=== PATIENT | female | born 1950 | race Caucasian/White ===

== ENCOUNTER 2016-04-28 10:07 | Outpatient (CLI) | payer MEDICARE, BC | END 2016-04-28 10:08 | disposition home or self-care (01) | DX: G47.33 Obstructive sleep apnea (adult) (pediatric) (principal) | CPT/HCPCS: 99214; G0463 ==

== ENCOUNTER 2016-06-12 10:24 | Outpatient (CLI) | payer BC, MEDICARE | END 2016-06-12 10:25 | disposition home or self-care (01) | DX: E55.9 Vitamin D deficiency, unspecified (principal); R73.09 Other abnormal glucose; Z79.899 Other long term (current) drug therapy; R53.83 Other fatigue ==

== ENCOUNTER 2016-09-03 07:05 | Day surgery (SDC) | payer MEDICARE, BC ==
[~2016-09-03 07:05] MED LIST: LACTATED RINGERS 1,000 ML IV ONE; LACTATED RINGERS 500 ML IV ONE
[2016-09-03] MEDS ORDERED: TROPICAMIDE 1% OPHTH 2 ML DROPS OPTH ONE (07:40)
[2016-09-03] MEDS ORDERED: KETOROLAC 0.45% OPHTH DROPS OPTH ONE (07:40)
[2016-09-03] MEDS ORDERED: CYCLOPENTOLATE 1% OPHTH DROPS 2 ML OPTH ONE (07:40)
[2016-09-03] MEDS ORDERED: NEOMYCIN/POLYMYX/DEXAMETH OPHTH OINT OPTH ONE ×2 (08:18→08:35)
[2016-09-03] MEDS ORDERED: levoFLOXacin 0.5% OPHTH DROPS 5 ML OPTH ONE (08:18)
[2016-09-03] MEDS ORDERED: EPINEPHrine 1 MG/ML AMP IO ONE ×2 (08:18→08:35)
[2016-09-03] MEDS ORDERED: BRIMONIDINE 0.2% OPHTH DROPS 5 ML OPTH ONE ×2 (08:18→08:35)
[2016-09-03] MEDS ORDERED: PROPARACAINE 0.5% OPHTH DROPS 15 ML OPTH ONE ×2 (08:18→08:35)
[2016-09-03] MEDS ORDERED: BSS/LIDOCAINE/EPINEPHRINE 1 ML SYRINGE IO ONE ×3 (08:19→08:35)
[2016-09-03] MEDS ORDERED: CHONDR SULF/HYALURONATE SYRINGE IO ONE ×3 (08:19→08:35)
[2016-09-03] MEDS ORDERED: TETRACAINE 0.5% OPHTH DROPS 4 ML LEFTEYE ONE ×2 (08:20→08:35)
[2016-09-03] MEDS ORDERED: levoFLOXacin 0.5% OPHTH DROPS 5 ML LEFTEYE ONE (08:35)
[2016-09-03] MEDS ORDERED: PROPOFOL 200 MG/20 ML VIAL IVP ONE (08:40)
[2016-09-03] MEDS ORDERED: LIDOCAINE-MPF 2% 5 ML VIAL IM ONE (08:40)
[2016-09-03] MEDS ORDERED: MIDAZOLAM 2 MG/2 ML VIAL IVP ONE (08:40)
[2016-09-03 09:15] VITALS: BP 142/68
--- NOTE | 2016-09-03 10:27 | OPERATIVE REPORT ---
DATE OF SURGERY: 09/03/2016 00:00:00 PREOPERATIVE DIAGNOSIS: Visually impairing cataract, left eye. POSTOPERATIVE DIAGNOSIS: Visually impairing cataract, left eye. NAME OF PROCEDURE: Phacoemulsification cataract extraction with intraocular lens implant of the left eye, clear corneal lateral approach. SURGEON: Peter Be MD ANESTHESIA: Topical 0.5% tetracaine with monitored sedation, and intracameral Shugarcaine given at th e beginning of the surgical procedure. COMPLICATIONS: None. DESCRIPTION OF SURGICAL PROCEDURE: The patient was brought to the OR and, after IV and cardiac leads were placed, the patient was then prepped and draped in the usual ophthalmic manner. An adhesive pl astic drape was placed over the eye, a slit was made in the drape, and topical anesthetic was placed on the eye. A lid speculum was used to separate the eyelids and expose the eye. The eye was held se curely with the Colibri forceps. A Micro-Sharp blade was used to make a self-sealing stab wound 2 o' clock hours to the left of the planned clear corneal incision. Viscoelastic was used to fill the an terior chamber, and a crescent blade was used to make the initial vertical component of the self-seal ing clear corneal incision. A 2.75 keratome was used to complete the incision. A circular tear caps ulorrhexis was performed. The nucleus was hydrodissected, and phacoemulsification of the cataract wa s performed without complication. The I/A unit was used to remove the cortical material from the eye . The posterior capsule was polished crystal clear with the [employer] capsule polisher, and again the I/ A unit was used to remove any loose particulate matter after polishing the capsule. Viscoelastic was used to inflate the capsular bag. An AcrySof lens was inserted into the capsular bag with the loops left at about the 3 o'clock and 9 o'clock meridians. The I/A unit was used to remove as much Viscoe lastic from the eye as possible. BSS was used to fill the anterior chamber, with the wound found to be self-sealing and water tight. Several drops of Quixin were placed on the eye. The lid speculum w as removed. A drop of brimonidine was placed on the eye. Maxitrol ointment was placed on the eye. The eye was patched and shielded, and the patient was taken to the recovery room in good condition. JOB #: [id number] EXT JOB #:[id number]
== END 2016-09-03 07:06 | disposition home or self-care (01) ==
LOC: SDS 07:05
PROVIDERS: ATTEND Specialist
PROC: 08RK3JZ Replacement of Left Lens with Synthetic Substitute, Percutaneous Approach (ICD-10-PCS; principal; 2016-09-03 08:15)
DX: H25.12 Age-related nuclear cataract, left eye (principal); I69.354 Hemiplegia and hemiparesis following cerebral infarction affecting left non-dominant side; I48.91 Unspecified atrial fibrillation; E66.9 Obesity, unspecified; G47.30 Sleep apnea, unspecified; Z87.891 Personal history of nicotine dependence; Z68.41 Body mass index [BMI] 40.0-44.9, adult; Z96.649 Presence of unspecified artificial hip joint
CPT/HCPCS: 66984; V2632

== ENCOUNTER 2016-09-10 09:32 | Day surgery (SDC) | payer MEDICARE, BC ==
[2016-09-10] MEDS ORDERED: LACTATED RINGERS 500 ML IV ONE ×2 (09:45→12:06)
[2016-09-10] MEDS ORDERED: CYCLOPENTOLATE 1% OPHTH DROPS 2 ML OPTH ONE (09:50)
[2016-09-10] MEDS ORDERED: KETOROLAC 0.45% OPHTH DROPS OPTH ONE (09:50)
[2016-09-10] MEDS ORDERED: TROPICAMIDE 1% OPHTH 2 ML DROPS OPTH ONE (09:50)
[2016-09-10] MEDS ORDERED: PROPARACAINE 0.5% OPHTH DROPS 15 ML OPTH ONE ×2 (10:28→11:22)
[2016-09-10] MEDS ORDERED: BRIMONIDINE 0.2% OPHTH DROPS 5 ML OPTH ONE ×2 (10:28→11:22)
[2016-09-10] MEDS ORDERED: CHONDR SULF/HYALURONATE SYRINGE IO ONE ×2 (10:29→11:22)
[2016-09-10] MEDS ORDERED: NEOMYCIN/POLYMYX/DEXAMETH OPHTH OINT OPTH ONE ×2 (10:29→11:23)
[2016-09-10] MEDS ORDERED: BSS/LIDOCAINE/EPINEPHRINE 1 ML SYRINGE IO ONE ×2 (10:29→11:22)
[2016-09-10] MEDS ORDERED: EPINEPHrine 1 MG/ML AMP IO ONE ×2 (10:29→11:22)
[2016-09-10] MEDS ORDERED: levoFLOXacin 0.5% OPHTH DROPS 5 ML OPTH ONE ×2 (10:29→11:22)
[2016-09-10] MEDS ORDERED: PROPOFOL 200 MG/20 ML VIAL IVP ONE (11:13)
[2016-09-10] MEDS ORDERED: MIDAZOLAM 2 MG/2 ML VIAL IVP ONE (11:13)
[2016-09-10 12:18] VITALS: BP 136/74
--- NOTE | 2016-09-10 12:20 | OPERATIVE REPORT ---
DATE OF SURGERY: 09/10/2016 00:00:00 PREOPERATIVE DIAGNOSIS: Visually impairing cataract, right eye. POSTOPERATIVE DIAGNOSIS: Visually impairing cataract, right eye. NAME OF PROCEDURE: Phacoemulsification cataract extraction with intraocular lens implant of the righ t eye, clear corneal lateral approach. SURGEON: Peter Be MD ANESTHESIA: Topical 0.5% tetracaine with monitored sedation and intracameral Shugarcaine given at th e beginning of the surgical procedure. COMPLICATIONS: None. DESCRIPTION OF SURGICAL PROCEDURE: The patient was brought to the OR and, after IV and cardiac leads were placed, the patient was then prepped and draped in the usual ophthalmic manner. An adhesive pl astic drape was placed over the eye, a slit was made in the drape, and topical anesthetic was placed on the eye. A lid speculum was used to separate the eyelids and expose the eye. The eye was held se curely with the Colibri forceps. A Micro-Sharp blade was used to make a self-sealing stab wound 2 o' clock hours to the left of the planned clear corneal incision. Viscoelastic was used to fill the an terior chamber, and a crescent blade was used to make the initial vertical component of the self-seal ing clear corneal incision. A 2.75 keratome was used to complete the incision. A circular tear caps ulorrhexis was performed. The nucleus was hydrodissected, and phacoemulsification of the cataract wa s performed without complication. The I/A unit was used to remove the cortical material from the eye . The posterior capsule was polished crystal clear with the [employer] capsule polisher, and again the I/ A unit was used to remove any loose particulate matter after polishing the capsule. Viscoelastic was used to inflate the capsular bag. An AcrySof lens was inserted into the capsular bag with the loops left at about the 3 o'clock and 9 o'clock meridians. The I/A unit was used to remove as much Viscoe lastic from the eye as possible. BSS was used to fill the anterior chamber, with the wound found to be self-sealing and water tight. Several drops of Quixin were placed on the eye. The lid speculum w as removed. A drop of brimonidine was placed on the eye. Maxitrol ointment was placed on the eye. The eye was patched and shielded, and the patient was taken to the recovery room in good condition. JOB #: [id number] EXT JOB #:[id number]
== END 2016-09-10 09:33 | disposition home or self-care (01) ==
LOC: SDS 09:32
PROVIDERS: ATTEND Specialist
PROC: 08RJ3JZ Replacement of Right Lens with Synthetic Substitute, Percutaneous Approach (ICD-10-PCS; principal; 2016-09-10 10:30)
DX: H25.11 Age-related nuclear cataract, right eye (principal); G47.33 Obstructive sleep apnea (adult) (pediatric); I48.91 Unspecified atrial fibrillation; Z87.891 Personal history of nicotine dependence
CPT/HCPCS: 66984; V2632

== ENCOUNTER 2016-09-15 12:14 | Outpatient (CLI) | payer MEDICARE, BC ==
--- NOTE | 2016-09-16 16:36 | Mammography Report ---
DIGITAL SCREENING MAMMOGRAM: 09/15/2016 CLINICAL INDICATION: A 66-year-old with history of late childbearing for screening. COMPARISON: 09/2015, 07/2013, 10/2009, 08/2008, 08/2006. TECHNIQUE: Routine CC and MLO projections were obtained of the breasts. FINDINGS: Parenchymal tissue within the breasts is predominantly fatty replaced. There are no domina nt masses, suspicious microcalcifications, or secondary signs of malignancy. In comparison to the pre vious studies, there are no significant changes. IMPRESSION: NO MAMMOGRAPHIC EVIDENCE OF MALIGNANCY. NO SIGNIFICANT INTERVAL CHANGES. RECOMMENDATION: Screening mammography is recommended annually. BI-RADS category 1 - negative. STANDARD QUALIFYING STATEMENTS 1. This examination was reviewed with the aid of Computed-Aided Detection (CAD). 2. A negative or benign imaging report should not delay biopsy if clinically suspicious findings are present. Consider surgical consultation if warranted. More than 5% of cancers are not identified by i maging. 3. Dense breasts may obscure an underlying neoplasm. JOB #: [id number] EXT JOB #:[id number]
== END 2016-09-15 12:15 | disposition home or self-care (01) ==
LOC: DI 12:14
PROVIDERS: ATTEND Internal Medicine
DX: Z12.31 Encounter for screening mammogram for malignant neoplasm of breast (principal)
CPT/HCPCS: 77067

== ENCOUNTER 2016-09-22 08:21 | Outpatient (CLI) | payer MEDICARE, BC ==
--- NOTE | 2016-09-22 15:57 | DEXA Report ---
DEXA SCAN: 09/22/2016 CLINICAL INDICATION: Postmenopausal. TECHNIQUE: Dual energy x-ray absorptiometry (DXA) was performed on a smsPREP system. Regions measured are the lumbar spine and left forearm. COMPARISON: None. In accordance with the International Society for Clinical Densitometry (ISCD) guidelines, data from previous exams may be reanalyzed using current recommendations and techniques. This is done to allow a more accurate basis for comparison with the current study. FINDINGS: The data for the lumbar spine is as follows: REGION BMD (g/cm/cm) T-SCORE Z-SCORE L1 0.929 -1.7 -1.2 L2 0.998 -1.7 -1.2 L3 1.130 -0.6 -0.1 L4 1.004 -1.6 -1.2 TOTAL 1.019 -1.3 -0.9 NOTE: All evaluable vertebrae are used for classification. The data for the forearm is as follows: REGION BMD (g/cm/cm) T-SCORE Z-SCORE 1/3 0.790 -1.0 0.5 NOTE: The 33% radius of the nondominant forearm is used for classification. IMPRESSION: 1. THE WHO CLASSIFICATION BASED ON THE INTERNATIONAL REFERENCE STANDARD IS OSTEOPENIA. THE FRACTURE RISK IS INCREASED. 2. LEFT FOREARM EVALUATION PERFORMED DUE TO BILATERAL HIP REPLACEMENTS. RECOMMENDATION: Patients with diagnosis of osteoporosis or osteopenia should have regular bone mineral density assessment. For those eligible for Medicare, routine testing is allowed once every 2 years. Testing frequency can be increased for patients who have rapidly progressing disease or for those who are receiving medical therapy to restore bone mass. COMMENT: World Health Organization (WHO) definitions for osteoporosis and osteopenia: NORMAL BMD: T-score at -1.0 or higher, fracture risk is low. OSTEOPENIA BMD: T-score between -1.0 and -2.5, fracture risk is increased. OSTEOPOROSIS BMD: T-score at -2.5 or lower, fracture risk high. National Osteoporosis Foundation recommends: 1. Obtain adequate dietary calcium (at least 1200 mg per day) and vitamin D (400 -800 international units per day). 2. Participate, as appropriate, in regular weightbearing and muscle- strengthening exercise. 3. Avoid tobacco use and reduce alcohol and caffeine intake. 4. For more detailed information see the website at www.NOF.org. MTDD
== END 2016-09-22 08:22 | disposition home or self-care (01) ==
LOC: DI 08:21
PROVIDERS: ATTEND Internal Medicine
DX: Z13.820 Encounter for screening for osteoporosis (principal); M85.89 Other specified disorders of bone density and structure, multiple sites; Z78.0 Asymptomatic menopausal state; Z96.643 Presence of artificial hip joint, bilateral
CPT/HCPCS: 77080; 77081

== ENCOUNTER 2017-08-19 08:00 | Outpatient (CLI) | payer MEDICARE, BC ==
[2017-08-19 13:44] LABS: EOSINOPHILS # (AUTO) 0.1 10^3/uL (0.0-0.7); EOSINOPHILS % (AUTO) 1.6 %; HGB - HEMOGLOBIN 12.1 g/dL (12.0-16.0); LYMPHOCYTES # (AUTO) 1.1 10^3/uL (1.5-3.5); MEAN CORPUSCULAR HGB CONC 33.8 g/dL (32.0-36.0); MEAN PLATELET VOLUME 8.4 fL (7.9-10.8); MONOCYTES # (AUTO) 0.3 10^3/uL (0.0-1.0); MONOCYTES % (AUTO) 8.1 %; NEUTROPHILS % (AUTO) 57.3 %; PLT - PLATELET COUNT 138 10^3/uL (130-450); RED BLOOD COUNT 4.02 10^6/uL (4.20-5.40); RED CELL DISTRIBUTION WIDTH 14.2 % (12.0-15.0); WHITE BLOOD COUNT 3.5 x10^3/uL (4.8-10.8)
[2017-08-19 13:59] LABS: ALBUMIN 4.1 g/dL (3.2-5.5); ALBUMIN/GLOBULIN RATIO 1.5 (1.0-2.2); ALKALINE PHOSPHATASE 46 IU/L (42-121); ALT ALANINE AMINOTRANSFERASE 13 IU/L (10-60); AST ASPARTATE AMINOTRANSFERASE 15 IU/L (10-42); BILIRUBIN,TOTAL 0.6 mg/dL (0.2-1.0); BUN - BLOOD UREA NITROGEN 14 mg/dL (6-20); CALCIUM 9.3 mg/dL (8.5-10.3); CARBON DIOXIDE - CO2 29 mmol/L (21-32); CHLORIDE 100 mmol/L (101-111); CHOL/HDL RATIO 2.5 (<4.4); CHOLESTEROL 202 mg/dL; CREATININE 0.8 mg/dL (0.4-1.0); GFR - MDRD 72 (>89); GLUCOSE 105 mg/dL (70-100); HDL CHOLESTEROL 81 mg/dL; LDL CHOLESTEROL,CALCULATED 99 mg/dL; LDL/HDL RATIO 1.2 (<4.4); SODIUM 136 mmol/L (135-145); TOTAL PROTEIN 6.9 g/dL (6.7-8.2); VLDL CHOLESTEROL 22 mg/dL
[2017-08-20 11:16] LABS: HEPATITIS C ANTIBODY NON-REACTIVE (NON-REACTIVE)
== END 2017-08-19 08:01 | disposition home or self-care (01) ==
LOC: LAB.R 08:00
PROVIDERS: ATTEND Internal Medicine
DX: E66.9 Obesity, unspecified (principal); E78.5 Hyperlipidemia, unspecified; I10 Essential (primary) hypertension; M19.90 Unspecified osteoarthritis, unspecified site; I48.91 Unspecified atrial fibrillation; Z79.899 Other long term (current) drug therapy; Z72.89 Other problems related to lifestyle
CPT/HCPCS: 80053; 80061; 83721; 84443; 85025; 86803

== ENCOUNTER 2017-08-26 07:45 | Outpatient (CLI) | payer MEDICARE, BC ==
--- NOTE | 2017-08-26 13:47 | CT Report ---
CT CHEST WITHOUT CONTRAST FOR LUNG CANCER SCREENIN08/26/2017 CLINICAL INDICATION: A 67-year-old asymptomatic patient with a [id number] history of smoking, quit within the last 15 years, for screening. COMPARISON: 04/18/2016 from [place], [place]. TECHNIQUE: Axial CT images of the chest were obtained without intravenous contrast, using low dose screening technique. FINDINGS: The heart and great vessels demonstrate atherosclerotic calcifications, mild. Calcified mediastinal lymph nodes are present, stable from previous. No adenopathy is seen. No noncalcified pulmonary nodule or mass lesion is appreciated. No effusion or pneumothorax is present. Osseous structures demonstrate degenerative changes. Limited evaluation of upper abdominal structures demonstrates normal adrenal glands. IMPRESSION: NEGATIVE EXAMINATION. RECOMMENDATION: Continue low dose screening with CT in 12 months. LUNG-RADS CATEGORY 1 - NEGATIVE. CT DOSE REDUCTION STATEMENT In accordance with CT protocol optimization, one or more of the following dose reduction techniques were utilized for this exam: automated exposure control, adjustment of mA and/or KV based on patient size, or use of iterative reconstructive technique. TD: 08/26/2017 13:33
== END 2017-08-26 07:46 | disposition home or self-care (01) ==
LOC: DI 07:45
PROVIDERS: ATTEND Internal Medicine
DX: Z00.8 Encounter for other general examination (principal); Z87.891 Personal history of nicotine dependence

== ENCOUNTER 2017-10-08 11:57 | Day surgery (SDC) | payer MEDICARE, BC ==
[~2017-10-08 11:57] MED LIST changes: -LACTATED RINGERS 500 ML IV ONE
[2017-10-08] MEDS ORDERED: LACTATED RINGERS 1,000 ML IV ONE (12:03)
[2017-10-08] MEDS ORDERED: LIDOCAINE-MPF 2% 5 ML VIAL IM ONE (13:45)
[2017-10-08] MEDS ORDERED: MIDAZOLAM 2 MG/2 ML VIAL IVP ONE (13:45)
[2017-10-08] MEDS ORDERED: PROPOFOL 200 MG/20 ML VIAL IVP ONE (13:45)
[2017-10-08] MEDS ORDERED: fentaNYL 100 MCG/2 ML VIAL IVP ONE (13:45)
[2017-10-08 14:31] VITALS: BP 166/92
== END 2017-10-08 11:58 | disposition home or self-care (01) ==
LOC: SDS 11:57
PROVIDERS: ATTEND Internal Medicine Gastroenterology
PROC: 0DJD8ZZ Inspection of Lower Intestinal Tract, Via Natural or Artificial Opening Endoscopic (ICD-10-PCS; principal; 2017-10-08 12:15)
DX: Z12.11 Encounter for screening for malignant neoplasm of colon (principal); K57.30 Diverticulosis of large intestine without perforation or abscess without bleeding; E78.5 Hyperlipidemia, unspecified; I10 Essential (primary) hypertension; I48.91 Unspecified atrial fibrillation; G47.33 Obstructive sleep apnea (adult) (pediatric); Z79.01 Long term (current) use of anticoagulants; Z87.891 Personal history of nicotine dependence
CPT/HCPCS: G0121; J7120

== ENCOUNTER 2020-02-09 06:22 | Outpatient (CLI) | payer MEDICARE, BC | END 2020-02-09 06:23 | disposition EMS.NT | LOC: EMS 06:22 | PROVIDERS: ATTEND Surgery | DX: Z03.89 Encounter for observation for other suspected diseases and conditions ruled out (principal) ==

== ENCOUNTER 2020-08-28 08:00 | Outpatient (CLI) | payer MEDICARE, BC ==
[2020-08-28 11:55] LABS: BASOPHILS % (AUTO) 0.6 %; EOSINOPHILS # (AUTO) 0.1 10^3/uL (0.0-0.7); EOSINOPHILS % (AUTO) 1.3 %; HCT - HEMATOCRIT 41.7 % (37.0-47.0); HGB - HEMOGLOBIN 12.8 g/dL (12.0-16.0); LYMPHOCYTES # (AUTO) 1.4 10^3/uL (1.5-3.5); LYMPHOCYTES % (AUTO) 26.8 %; MEAN CORPUSCULAR HEMOGLOBIN 28.4 pg (27.0-31.0); MEAN CORPUSCULAR HGB CONC 30.7 g/dL (32.0-36.0); MEAN CORPUSCULAR VOLUME 92.5 fL (81.0-99.0); MEAN PLATELET VOLUME 10.9 fL (7.9-10.8); MONOCYTES # (AUTO) 0.4 10^3/uL (0.0-1.0); MONOCYTES % (AUTO) 7.3 %; NEUTROPHILS # (AUTO) 3.4 10^3/uL (1.5-6.6); NEUTROPHILS % (AUTO) 63.8 %; PLT - PLATELET COUNT 195 10^3/uL (130-450); RED BLOOD COUNT 4.51 10^6/uL (4.20-5.40); WHITE BLOOD COUNT 5.3 x10^3/uL (4.8-10.8)
[2020-08-28 12:44] LABS: THYROID STIMULATING HORMONE 2.54 uIU/mL (0.34-5.60)
[2020-08-28 13:15] LABS: ALBUMIN 4.4 g/dL (3.2-5.5); ALBUMIN/GLOBULIN RATIO 1.4 (1.0-2.2); ALKALINE PHOSPHATASE 68 IU/L (42-121); ALT ALANINE AMINOTRANSFERASE 18 IU/L (10-60); AST ASPARTATE AMINOTRANSFERASE 21 IU/L (10-42); BILIRUBIN,TOTAL 0.9 mg/dL (0.2-1.0); BUN - BLOOD UREA NITROGEN 13 mg/dL (6-20); CALCIUM 9.9 mg/dL (8.5-10.3); CARBON DIOXIDE - CO2 26 mmol/L (21-32); CHLORIDE 99 mmol/L (101-111); CHOL/HDL RATIO 2.4 (<4.4); CHOLESTEROL 186 mg/dL; CREATININE 0.8 mg/dL (0.4-1.0); GFR - MDRD 71 (>89); GLUCOSE 109 mg/dL (70-100); HDL CHOLESTEROL 79 mg/dL; LDL CHOLESTEROL,CALCULATED 80 mg/dL; POTASSIUM 4.7 mmol/L (3.5-5.0); SODIUM 138 mmol/L (135-145); TOTAL PROTEIN 7.6 g/dL (6.7-8.2); TRIGLYCERIDES 137 mg/dL; VLDL CHOLESTEROL 27 mg/dL
== END 2020-08-28 23:59 | disposition home or self-care (01) ==
LOC: LAB.WCP 08:00
PROVIDERS: ATTEND Family Medicine
DX: G47.33 Obstructive sleep apnea (adult) (pediatric) (principal); Z79.01 Long term (current) use of anticoagulants; I10 Essential (primary) hypertension; E78.5 Hyperlipidemia, unspecified; I48.91 Unspecified atrial fibrillation; I63.9 Cerebral infarction, unspecified
CPT/HCPCS: 36415; 80053; 80061; 83721; 84443; 85025

== ENCOUNTER 2020-11-07 08:52 | Outpatient (CLI) | payer MEDICARE, BC ==
--- NOTE | 2020-11-22 15:50 | Mammography Report ---
BILATERAL DIGITAL SCREENING MAMMOGRAM: 11/07/2020 CLINICAL: Routine screening. Comparison is made to exams dated: 09/15/2016 mammogram and 09/18/2015 mammogram - [facility]. The tissue of both breasts is predominantly fatty. No significant masses, calcifications, or other findings are seen in either breast. There has been no significant interval change. IMPRESSION: NEGATIVE There is no mammographic evidence of malignancy. A 1 year screening mammogram is recommended. This exam was interpreted at Station ID: [id number]. NOTE: For mammograms, a report in lay terms will be sent to the patient. Approximately 15% of breast malignancies will not be visualized mammographically. In the management of a palpable breast mass, a negative mammogram must not discourage biopsy of a clinically suspicious lesion. Electronically Signed By: Rashel sarmiento/manuel:11/21/2020 11:00:45 ACR BI-RADS Category 1: Negative 3341F PARENCHYMAL PATTERN: (F) - The breast(s) demonstrate(s) diffuse fatty replacement. BI-RADS CATEGORY: (1) - 1 RECOMMENDATION: (ANNUAL) - Recommend routine annual screening mammography. [id number] 1 year screening LATERALITY: (B)
== END 2020-11-07 08:53 | disposition home or self-care (01) ==
LOC: DI 08:52
PROVIDERS: ATTEND Family Medicine
DX: Z12.31 Encounter for screening mammogram for malignant neoplasm of breast (principal)

== ENCOUNTER 2020-11-07 08:57 | Outpatient (CLI) | payer MEDICARE, BC ==
--- NOTE | 2020-11-12 14:36 | DEXA Report ---
PROCEDURE: Dexa Spine and/or Hip INDICATIONS: POST MENOPAUSAL TECHNIQUE: Dual energy x-ray absorptiometry (DXA) was performed on a ICEdot System. Regions measur ed are the AP Spine, and left forearm due to prior bilateral hip arthroplasty. COMPARISON: 09/22/2016. FINDINGS: Lumbar Spine: Bone Mineral Density 1.000 g/cm/cm,T score -1.5. There is interval 1.9% decrease in total lumbar b one mineral density since 2017 study. Left forearm: Bone Mineral Density 0.581 g/cm/cm, T score -3.4. There is interval 26.5% decrease in forearm bone mi neral density since 2017 study. (T score greater or equal to -1.0: NORMAL) (T score from -1.1 to -2.4: OSTEOPENIA) (T score less than or equal to -2.5 to: OSTEOPOROSIS) Impression: Osteoporosis. Patients with diagnosis of osteoporosis or osteopenia should have regular bone mineral density assess ment. For those eligible for Medicare, routine testing is allowed once every 2 years. Testing frequ ency can be increased for patients who have rapidly progressing disease or for those who are receivin g medical therapy to restore bone mass. Reviewed by: Rohan Bran MD on 11/07/2020 11:17 AM PDT Approved by: Rohan Bran MD on 11/07/2020 11:17 AM PDT Station ID: [id number]
== END 2020-11-07 08:58 | disposition home or self-care (01) ==
LOC: DI 08:57
PROVIDERS: ATTEND Family Medicine
DX: Z13.820 Encounter for screening for osteoporosis (principal); Z78.0 Asymptomatic menopausal state; M81.0 Age-related osteoporosis without current pathological fracture

== ENCOUNTER 2021-03-04 08:00 | Outpatient (CLI) | payer MEDICARE, BC ==
[2021-03-04 13:06] LABS: ESTIMATED AVERAGE GLUCOSE 103 mg/dL (70-100); HEMOGLOBIN A1c% 5.2 % (4.27-6.07)
[2021-03-04 13:28] LABS: CALCIUM 10.1 mg/dL (8.5-10.3); CREATININE 0.9 mg/dL (0.4-1.0); POTASSIUM 4.5 mmol/L (3.5-5.0)
[2021-03-04 13:37] LABS: THYROID STIMULATING HORMONE 1.67 uIU/mL (0.34-5.60)
[2021-03-04 13:38] LABS: FREE T3 3.63 pg/mL (2.5-3.9)
[2021-03-04 13:39] LABS: FREE T4 (FREE THYROXINE) 0.98 ng/dL (0.58-1.64)
== END 2021-03-04 23:59 ==
LOC: LAB.WCP 08:00
PROVIDERS: ATTEND Family Medicine
DX: E66.01 Morbid (severe) obesity due to excess calories (principal); R73.9 Hyperglycemia, unspecified; G47.33 Obstructive sleep apnea (adult) (pediatric); I10 Essential (primary) hypertension; I48.91 Unspecified atrial fibrillation; I63.9 Cerebral infarction, unspecified
CPT/HCPCS: 36415; 80048; 83036; 84439; 84443; 84481

== ENCOUNTER 2022-06-24 10:20 | Outpatient (CLI) | payer MEDICARE, BC ==
--- NOTE | 2022-06-25 09:00 | Mammography Report ---
BILATERAL DIGITAL SCREENING MAMMOGRAM 3D/2D: 06/24/2022 CLINICAL: Routine screening. Comparison is made to exams dated: 11/07/2020 mammogram, 09/15/2016 mammogram, 09/18/2015 mammogram, and 07/13/2013 mammogram - [facility]. Both breasts are almost entirely fatty (category a/<25% glandular tissue). No significant masses, calcifications, or other findings are seen in either breast. There has been no significant interval change. IMPRESSION: NEGATIVE There is no mammographic evidence of malignancy. A 1 year screening mammogram is recommended. Based on the Tyrer Cuzick model (a risk assessment model) the patients lifetime risk is 3.1% and her 10 year risk is 2.3%. According to the ACR, ACS, and NCCN guidelines, an annual breast MRI exam félix g with mammogram is recommended if the patients lifetime risk is 20% or greater. This exam was interpreted at Station ID: [id number]. NOTE: For mammograms, a report in lay terms will be sent to the patient. Approximately 15% of breast malignancies will not be visualized mammographically. In the management of a palpable breast mass, a negative mammogram must not discourage biopsy of a clinically suspicious lesion. Electronically Signed By: Esthela wilde/manuel:06/24/2022 17:00:39 letter sent: No_Letter ACR BI-RADS Category 1: Negative 3341F PARENCHYMAL PATTERN: (F) - The breast(s) demonstrate(s) diffuse fatty replacement. BI-RADS CATEGORY: (1) - 1 Mammogram [id number] 1 year screening LATERALITY: (B)
== END 2022-06-24 10:21 | disposition home or self-care (01) ==
LOC: DI 10:20
DX: Z12.31 Encounter for screening mammogram for malignant neoplasm of breast (principal)

== ENCOUNTER 2023-05-11 17:10 | Observation (INO) | payer MEDICARE, BC ==
--- NOTE | 2023-05-11 17:29 | ED Physician Documentation ---
History of Present Illness - Stated complaint Stated Complaint: SOA - Chief complaint Chief Complaint: Resp - History obtained from History obtained from: Patient, Family - History of Present Illness Timing: How many weeks ago (several weeks) Pain level max: 0 Pain level now: 0 - Additonal information Additional information: Patient is a 72-year-old female who has had difficulty breathing for the past several weeks. She went to the walk-in clinic today and was found to be hypoxic, approximately 80% on room air. Has a history of obstructive sleep apnea. Uses CPAP/BiPAP. She has a remote smoking history, does not smoke currently. Does not believe that she has any COPD, emphysema or asthma. Denies any cardiac history. No coronary artery disease that is known. No stents, bypasses etc. No fevers. No chills. No cough. No congestion. Worse with walking, better with rest. Does not use oxygen at home. Review of Systems Constitutional: denies: Fever, Chills Nose: denies: Rhinorrhea / runny nose, Congestion GI: denies: Vomiting, Diarrhea : denies: Dysuria Skin: denies: Lesions Musculoskeletal: denies: Neck pain, Back pain Neurologic: denies: Headache PD PAST MEDICAL HISTORY - Past Medical History Past Medical History: Yes Cardiovascular: Atrial fibrillation, Hypertension Respiratory: CPAP use, Sleep apnea Endocrine/Autoimmune: None GI: Chronic constipation : None HEENT: None Psych: None Musculoskeletal: Osteoarthritis Derm: None - Past Surgical History Past Surgical History: Yes Ortho: Hip replacement HEENT: Cataracts - Present Medications Home Medications: Ambulatory Orders Medication Instructions Recorded Confirmed Atorvastatin Calcium 20 mg PO DAILY 08/28/16 10/07/17 Cholecalciferol [Vitamin D3] 5,000 unit PO DAILY 08/28/16 10/07/17 Dabigatran Etexilate Mesylate 150 mg PO BID 08/28/16 10/07/17 [Pradaxa] Metoprolol Succinate [Toprol Xl] 25 mg PO BID 08/28/16 10/07/17 polyethylene glycoL 3350 [Miralax] 17 gm PO DAILY 08/28/16 10/07/17 - Allergies Allergies/Adverse Reactions: Allergies Allergy/AdvReac Type Severity Reaction Status Date / Time No Known Drug Allergies Allergy Verified 05/11/23 17:18 - Social History Does the pt smoke?: Yes Smoking Status: Current every day smoker Does the pt drink ETOH?: Yes Does the pt have substance abuse?: No - Immunizations Immunizations are current?: Yes PD ED PE NORMAL - Vitals Vital signs reviewed: Yes - General General: Alert and oriented X 3, No acute distress - HEENT HEENT: PERRL - Neck Neck: Supple, no meningeal sign - Cardiac Cardiac: Other (Irregularly irregular) - Respiratory Respiratory: Other (Crackles bilaterally, diminished breath sounds bilaterally, Tachypneic) - Abdomen Abdomen: Soft, Non tender, Non distended - Back Back: No spinal TTP - Derm Derm: Warm and dry - Extremities Extremities: Other (2+ bilateral lower extremity pitting edema) - Neuro Neuro: Alert and oriented X 3 - Psych Psych: Normal mood, Normal affect Results - Vitals Vitals: Vital Signs - 24 hr 05/11/23 05/11/23 05/11/23 17:13 17:48 18:00 Temperature 36.0 C L Heart Rate 92 85 84 Respiratory 20 26 H 24 Rate Blood Pressure 232/131 H 211/149 H O2 Saturation 98 99 If not protocol 4 : Oxygen Flow, liters/minute 05/11/23 05/11/23 05/11/23 18:18 18:30 19:00 Temperature Heart Rate 93 84 83 Respiratory 26 H 25 H 24 Rate Blood Pressure 191/150 H 202/116 H 191/165 H O2 Saturation 100 93 91 L If not protocol 4 : Oxygen Flow, liters/minute 05/11/23 05/11/23 05/11/23 19:30 20:00 20:30 Temperature Heart Rate 83 83 85 Respiratory 22 24 26 H Rate Blood Pressure 186/113 H 193/163 H 184/137 H O2 Saturation 91 L 100 98 If not protocol 4 : Oxygen Flow, liters/minute Oxygen O2 Source Nasal cannula Oxygen Flow Rate 4 - EKG (time done) 1820 EKG releavant findings:: EKG personally interpreted by author of this note. Relevant findings are: Rate: Rate (enter#) (77) Rhythm: Atrial fibrillation QRS: Normal Ischemia: Non specific changes - Labs Labs: Laboratory Tests 05/11/23 05/11/23 05/11/23 17:21 17:21 17:21 WBC 7.1 RBC 4.67 Hgb 13.3 Hct 43.6 MCV 93.4 MCH 28.5 MCHC 30.5 L RDW 14.6 Plt Count 188 MPV 10.4 Neut # (Auto) 5.0 Lymph # (Auto) 1.4 L Spink # (Auto) 0.6 Eos # (Auto) 0.1 Baso # (Auto) 0.1 Absolute Nucleated RBC 0.00 Nucleated RBC % 0.0 Sodium 139 Potassium 4.1 Chloride 100 L Carbon Dioxide 33 H Anion Gap 6.0 BUN 15 Creatinine 0.7 Estimated GFR (MDRD) 82 L Glucose 121 H Calcium 10.3 Total Bilirubin 1.0 AST 16 ALT 12 Alkaline Phosphatase 80 Troponin I High Sens B-Natriuretic Peptide 328 H Total Protein 7.4 Albumin 4.4 Globulin 3.0 Albumin/Globulin Ratio 1.5 05/11/23 17:21 WBC RBC Hgb Hct MCV MCH MCHC RDW Plt Count MPV Neut # (Auto) Lymph # (Auto) Spink # (Auto) Eos # (Auto) Baso # (Auto) Absolute Nucleated RBC Nucleated RBC % Sodium Potassium Chloride Carbon Dioxide Anion Gap BUN Creatinine Estimated GFR (MDRD) Glucose Calcium Total Bilirubin AST ALT Alkaline Phosphatase Troponin I High Sens 9.8 B-Natriuretic Peptide Total Protein Albumin Globulin Albumin/Globulin Ratio - Rads (name of study) cxr Relevant Findings:: Final report received, See rad report PD Medical Decision Making - ED course Complexity details: reviewed results, re-evaluated patient, considered differential, d/w patient, d/w family ED course: 72-year-old female with what appears to be new onset CHF. History of sleep apnea and A-fib. Rate controlled. Given Lasix and nitroglycerin. Blood pressure decreased, breathing improved, patient diuresing well. Has pulmonary edema on chest x-ray. She was able to be weaned down to 2 L on nasal cannula. Will need an echocardiogram in the morning and continue diuresis. I spoke with the nighttime hospitalist who accepts. This document was made in part using voice recognition software. While efforts are made to proofread this document, sound alike and grammatical errors may occur. Departure - Departure Disposition: 66 [facility] DC/Xfer Clinical Impression: Hypoxia Pulmonary edema Qualifiers: Chronicity: acute Qualified Code(s): J81.0 - Acute pulmonary edema Congestive heart failure (CHF) Qualifiers: Heart failure type: unspecified Heart failure chronicity: unspecified Qualified Code(s): I50.9 - Heart failure, unspecified Condition: Stable Forms: PCP List
[2023-05-11 17:37] LABS: BASOPHILS # (AUTO) 0.1 10^3/uL (0.0-0.1); BASOPHILS % (AUTO) 0.8 %; EOSINOPHILS # (AUTO) 0.1 10^3/uL (0.0-0.7); EOSINOPHILS % (AUTO) 1.3 %; HCT - HEMATOCRIT 43.6 % (37.0-47.0); HGB - HEMOGLOBIN 13.3 g/dL (12.0-16.0); LYMPHOCYTES # (AUTO) 1.4 10^3/uL (1.5-3.5); LYMPHOCYTES % (AUTO) 19.9 %; MEAN CORPUSCULAR HEMOGLOBIN 28.5 pg (27.0-31.0); MEAN CORPUSCULAR HGB CONC 30.5 g/dL (32.0-36.0); MEAN CORPUSCULAR VOLUME 93.4 fL (81.0-99.0); MEAN PLATELET VOLUME 10.4 fL (7.9-10.8); MONOCYTES # (AUTO) 0.6 10^3/uL (0.0-1.0); MONOCYTES % (AUTO) 7.9 %; NEUTROPHILS % (AUTO) 69.8 %; PLT - PLATELET COUNT 188 10^3/uL (130-450); RED BLOOD COUNT 4.67 10^6/uL (4.20-5.40); RED CELL DISTRIBUTION WIDTH 14.6 % (12.0-15.0); WHITE BLOOD COUNT 7.1 x10^3/uL (4.8-10.8)
[2023-05-11] MEDS: IPRATROPIUM/ALBUTEROL 3 ML NEB INH STA (17:40)
[2023-05-11 17:42] LABS: ALBUMIN 4.4 g/dL (3.2-5.5); ALBUMIN/GLOBULIN RATIO 1.5 (1.0-2.2); CALCIUM 10.3 mg/dL (8.5-10.3); CREATININE 0.7 mg/dL (0.6-1.3); POTASSIUM 4.1 mmol/L (3.5-4.5); TOTAL PROTEIN 7.4 g/dL (6.4-8.9)
--- NOTE | 2023-05-11 18:01 | XRAY Report ---
PROCEDURE: Chest 1V INDICATIONS: dyspnea TECHNIQUE: One view of the chest was acquired. COMPARISON: None FINDINGS: Surgical changes and devices: None. Lungs and pleura: Heart size enlarged. Moderate vascular congestion noted to. Blunting of both costo phrenic angles. Mediastinum: Mediastinal contours appear normal. Bones and chest wall: No suspicious bony lesions. Overlying soft tissues appear unremarkable. IMPRESSION: Cardiomegaly, moderate vascular congestion and bibasilar pleural effusions Reviewed by: Neo Lou MD on 05/11/2023 5:00 PM [facility] Approved by: Neo Lou MD on 05/11/2023 5:00 PM [facility] Station ID: [id number]
[2023-05-11] MEDS: FUROSEMIDE 40 MG/4 ML VIAL IVP STA (19:27)
[2023-05-11] MEDS: NITROGLYCERIN SL 0.4 MG TABLET SL STA (19:27)
[2023-05-11] MEDS ORDERED: DABIGATRAN ETEXILATE MESYLATE 150 MG PO SCH (23:00)
[2023-05-11] MEDS: ACETAMINOPHEN 325 MG TABLET PO STA (23:09)
[2023-05-11] MEDS ORDERED: ONDANSETRON 4 MG/2 ML VIAL IVP PRN (23:48)
[2023-05-12] MEDS: METOPROLOL SUCCINATE 25 MG TABLET PO SCH (00:27)
[2023-05-12 01:01] LABS: B. PARAPERTUSSIS- RESP PCR PAN NOT DETECTED; B. PERTUSSIS- RESP PCR PANEL NOT DETECTED; C. PNEUMONIAE- RESP PCR PANEL NOT DETECTED; CORONAVIRUS 229E-RESP PCR NOT DETECTED; CORONAVIRUS HKU1-RESP PCR NOT DETECTED; CORONAVIRUS NL63-RESP PCR NOT DETECTED; CORONAVIRUS OC43-RESP PCR NOT DETECTED; HUMAN METAPNEUMOVIRUS NOT DETECTED; INFLUENZA A- RESP PCR PANEL NOT DETECTED; INFLUENZA B - RESP PCR PANEL NOT DETECTED; M. PNEUMONIAE- RESP PCR PANEL NOT DETECTED; PARAINFLUENZA VIRUS 1 NOT DETECTED; PARAINFLUENZA VIRUS 2 NOT DETECTED; PARAINFLUENZA VIRUS 3 NOT DETECTED; PARAINFLUENZA VIRUS 4 NOT DETECTED; RHINOVIRUS/ENTEROVIRUS NOT DETECTED; RSV- RESP PCR PANEL NOT DETECTED; SARS-CoV-2 -RESP PCR PANEL NOT DETECTED
[2023-05-12] MEDS: SODIUM CHLORIDE FLUSH 0.9% 10 ML SYRINGE IVP SCH (01:16)
[2023-05-12] MEDS ORDERED: traMADol 50 MG TABLET PO PRN (01:36)
[2023-05-12] MEDS: hydrALAZINE INJ 20 MG/ML VIAL IVP PRN (02:02)
[2023-05-12] MEDS: APIXABAN 5 MG TABLET PO SCH (02:03)
[2023-05-12] MEDS: SODIUM CHLORIDE FLUSH 0.9% 10 ML SYRINGE IVP PRN (02:03)
[2023-05-12] MEDS: NYSTATIN POWDER 15 GM TOP SCH (02:05)
[2023-05-12 06:05] LABS: BASOPHILS # (AUTO) 0.1 10^3/uL (0.0-0.1); BASOPHILS % (AUTO) 0.9 %; EOSINOPHILS # (AUTO) 0.1 10^3/uL (0.0-0.7); EOSINOPHILS % (AUTO) 1.1 %; HCT - HEMATOCRIT 41.1 % (37.0-47.0); HGB - HEMOGLOBIN 12.7 g/dL (12.0-16.0); LYMPHOCYTES # (AUTO) 0.9 10^3/uL (1.5-3.5); LYMPHOCYTES % (AUTO) 11.4 %; MEAN CORPUSCULAR HGB CONC 30.9 g/dL (32.0-36.0); MEAN CORPUSCULAR VOLUME 93.8 fL (81.0-99.0); MEAN PLATELET VOLUME 10.1 fL (7.9-10.8); MONOCYTES # (AUTO) 0.8 10^3/uL (0.0-1.0); MONOCYTES % (AUTO) 9.6 %; NEUTROPHILS # (AUTO) 6.2 10^3/uL (1.5-6.6); NEUTROPHILS % (AUTO) 76.9 %; PLT - PLATELET COUNT 153 10^3/uL (130-450); RED BLOOD COUNT 4.38 10^6/uL (4.20-5.40); RED CELL DISTRIBUTION WIDTH 14.6 % (12.0-15.0)
[2023-05-12 06:12] LABS: PARTIAL THROMBOPLASTIN TIME 37.3 secs (24.9-33.3)
[2023-05-12 06:17] LABS: INR 1.8 (0.8-1.2); PT - PROTHROMBIN TIME 18.7 secs (9.9-12.6)
[2023-05-12 06:19] LABS: ALBUMIN 4.1 g/dL (3.2-5.5); ALBUMIN/GLOBULIN RATIO 1.6 (1.0-2.2); BILIRUBIN,TOTAL 1.3 mg/dL (0.2-1.0); CALCIUM 9.8 mg/dL (8.5-10.3); CREATININE 0.6 mg/dL (0.6-1.3); MAGNESIUM 1.6 mg/dL (1.7-2.3); POTASSIUM 3.4 mmol/L (3.5-4.5); TOTAL PROTEIN 6.7 g/dL (6.4-8.9)
[2023-05-12 07:04] LABS: CHOL/HDL RATIO 2.4 (<4.4); CHOLESTEROL 163 mg/dL; HDL CHOLESTEROL 67 mg/dL; LDL CHOLESTEROL,CALCULATED 63 mg/dL; LDL/HDL RATIO 0.9 (<4.4); TRIGLYCERIDES 164 mg/dL (48-352); VLDL CHOLESTEROL 33 mg/dL
--- NOTE | 2023-05-12 07:25 | HISTORY & PHYSICAL EXAMINATION ---
Chief Complaint - Chief Complaint Chief Complaint: sob, chills, weakness History of Present Illness - History of Present Illness HPI Comment/Other: pt with progressively worsening sob ovver past several weeks. denies chest pain. she went to walk-in clinic early today and was found have O2 sat 80% on RA. h/o a-fib, on eliquis, rate -controlled. denies any falls. denies any fevers, chills. she is not on o2 at home. sob is worse with activity and imp roves with rest. she also reports dry cough. History - Past Medical History Cardiovascular: reports: Hypertension, High cholesterol, Atrial fibrillation Respiratory: reports: CPAP use, Sleep apnea Neuro: reports: CVA, Other Endocrine/Autoimmune: reports: None GI: reports: Chronic constipation : reports: None HEENT: reports: None Psych: reports: None Musculoskeletal: reports: Osteoarthritis Derm: reports: None MRSA Hx?: No Other Past Medical History: states left sided residual (states 2 yrs PT after stroke and [facility] month. 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, dental implants, cpap in room (waterless), o2 after stroke but not now - Past Surgical History Ortho: reports: Hip replacement HEENT: reports: Cataracts Meds/Allgy - Home Medications Home Medications: Ambulatory Orders Medication Instructions Recorded Confirmed Atorvastatin Calcium 20 mg PO DAILY 08/28/16 10/07/17 Cholecalciferol [Vitamin D3] 5,000 unit PO DAILY 08/28/16 10/07/17 Dabigatran Etexilate Mesylate 150 mg PO BID 08/28/16 10/07/17 [Pradaxa] Metoprolol Succinate [Toprol Xl] 25 mg PO BID 08/28/16 10/07/17 polyethylene glycoL 3350 [Miralax] 17 gm PO DAILY 08/28/16 10/07/17 - Allergies Allergies/Adverse Reactions: Allergies Allergy/AdvReac Type Severity Reaction Status Date / Time No Known Drug Allergies Allergy Verified 05/11/23 17:18 Review of Systems - Other Findings Other Findings: 14 pt review done with positives per hpi; all others reviewed as negative Exam - Vital Signs Vital Signs: Vital Signs x48h Temp Pulse Pulse Resp BP BP Pulse Ox 05/12/23 03:03 158/99 H 05/12/23 02:32 158/99 H 05/12/23 02:30 198/108 H 05/12/23 02:16 85 18 189/96 H 93 05/12/23 02:10 88 190/98 H 05/12/23 02:05 93 18 203/116 H 93 05/12/23 02:03 179/117 H 05/12/23 00:00 36.4 C L 88 20 206/108 H 94 05/11/23 23:30 88 23 175/94 H 90 L - Physical Exam Comments/Other: gen - aaox3, nad, polite heent - eomi, nc/at heart - per ed charting lungs - per ed charting abd - soft, bloated per pt msk - no acute trauma, b/l LE edema noted Conclusion/Plan - Lab Results Fish Bones: 05/12/23 05:57 05/12/23 05:57 - Other Other Results/Comments: pt with - - acute, hypoxemic resp failure acute chf exacerbation (below) trop negative diuresis, check 2d echo - acute chf exacerbation in setting of below and contributory to above apparently new-onset diuresis, asa, deven-i, check 2d echo - a-fib rate-controlled, continue eliquis continue home meds contributory to above f/u labs, replete electrolytes further orders per clinical course
[2023-05-12] MEDS: ATORVASTATIN 10 MG TABLET PO SCH (08:36)
[2023-05-12] MEDS: ASPIRIN EC 81 MG TABLET PO SCH (08:36)
[2023-05-12] MEDS: ACETAMINOPHEN 325 MG TABLET PO PRN (08:36)
[2023-05-12] MEDS: CHOLECALCIFEROL 5,000 UNIT CAPSULE PO SCH (08:39)
[2023-05-12] MEDS: lisinopriL 5 MG TABLET PO SCH ×2 (08:39→18:04)
[2023-05-12] MEDS: polyethylene glycoL 3350 17 GM PACKET PO SCH (08:40)
[2023-05-12] MEDS: FUROSEMIDE 40 MG/4 ML VIAL IVP SCH ×2 (08:40→16:05)
[2023-05-12 11:57] LABS: ESTIMATED AVERAGE GLUCOSE 97 mg/dL (70-100)
[2023-05-12 15:00] VITALS: O2SAT 92
--- NOTE | 2023-05-12 16:09 | PHARMACY PROGRESS NOTE ---
- Best Possible Medication History Admit Date and Time: 05/11/23 6758 Processed by: Pharmacy Medication History completed: Yes Patient Interview: Completed Secondary Source(s): Written medication list As the person ultimately responsible for medication therapy, providers are able to order a medication from an existing home medication list in [facility] via the "Reconcile Routine" prior to Confirmation of that medication by manager support services. Such practice is discouraged except when the physician, in their clinical judgment, deems that a medical need exists for a medication without regard to previous use.
[2023-05-12] MEDS: POTASSIUM CHLORIDE 20 MEQ/15 ML UDC PO SCH (17:42)
[2023-05-12] MEDS: MAGNESIUM OXIDE 400 MG TABLET PO SCH (17:42)
--- NOTE | 2023-05-12 17:44 | Discharge Plan ---
Discharge Plan Problem Reviewed?: Yes Disposition: Home, Self Care Condition: Good Prescriptions: Atorvastatin [Lipitor] 20 mg PO HS #30 tab Lisinopril [Zestril] 30 mg PO DAILY #90 tab Diet: Cardiac Activity Restrictions: Activity as Tolerated Shower Restrictions: No Driving Restrictions: Yes (Patient does not drive) Assistance Devices: Cane Weight Bearing: Full Weight Instruction Topics: Heart Failure Warning Signs Health Concerns: Julienne Caldwell may be developing diastolic heart failure related to hypertension and atrial fibrillation. Recommend she seek care at her primary care provider, acute care clinic or emergency room if her shortness of breath worsens. Please take all medications as prescribed. Plan of Treatment: 1. Please take all medications as prescribed. 2. Please limit fluid intake to 2 L each day. 3. Please follow-up with your primary care provider in 1 to 2 weeks. 4. Recommend a referral to cardiology. Care Goals: Return to independent living. Assessment: 1. Acute on chronic diastolic heart failure Comments/plan: Patient most likely has developed acute on chronic diastolic heart failure. It appears her heart rate is currently rate controlled. Recommend titrating her dose of lisinopril up as tolerated. Her dose has been increased from 5 mg to 10 mg and would recommend increasing as tolerated with goal of systolic blood pressure of 100-120. 2. Hypertension Comments/plan: Increase lisinopril to 30 mg daily and increase as tolerated with goal of maintaining systolic blood pressure 100-120. 3. h/o stroke Comments/plan: Start Atorvastatin 4. Obstructive Sleep Apnea Comments/plan: 1. Continue positive airway pressure therapy on a nightly basis. Additional Instructions or Follow Up instructions: 1. Please take all medications as prescribed. 2. Please follow-up with Dr. Danial Harman in 1 to 2 weeks. 3. Recommend referral to cardiology. No Smoking: If you smoke, Please STOP! Call for help. Follow-up with: Danial Rg MD [Primary Care Provider] -
--- NOTE | 2023-05-12 17:45 | DISCHARGE SUMMARY ---
"Discharge Summary Admit Date: 05/11/23 Discharge Date: 05/12/23 Discharging Provider: Matthew Huddleston MD Primary Care Provider: Danial Rg MD Condition at Discharge: Good Discharge Disposition: Home, Self Care Discharge Facility [facility]: [facility] - DIAGNOSES Admission Diagnoses: 1. Acute on chronic diastolic heart failure 2. Hypertension 3. h/o stroke 4. Obstructive Sleep Apnea Discharge Diagnoses with Status of Each Condition: 1. Acute on chronic diastolic heart failure 2. Hypertension 3. h/o stroke 4. Obstructive Sleep Apnea - HPI History of Present Illness: Julienne Caldwell presented to the emergency room progressively worsening sob over past several weeks. She denies chest pain. She went to walk-in clinic early today and was found have O2 sat 80% on RA. h/o a-fib, on eliquis, rate - controlled. denies any falls. denies any fevers, chills. She is not on o2 at home. Dyspnea is worse with activity and improves with rest. She also reports dry cough. - CONSULTS | PROCEDURES Procedures: 05/12/2023 Echocardiogram - HOSPITAL COURSE Hospital Course: She was admitted to the hospital as an observation patient and given lasix for diuresis. Her symptoms resolved over the course of the day. She reports she has not taken her lisinpril for several days prior to admission. An echocardiogram was performed on May 12, 2023 and revealed that the left ventricular size is normal and left ventricular ejection fraction is normal at 5560%. The right ventricle is mildly enlarged with normal right ventricular systolic function. Patient was discharged in stable condition. - ALLERGIES Allergies/Adverse Reactions: Allergies Allergy/AdvReac Type Severity Reaction Status Date / Time No Known Drug Allergies Allergy Verified 05/11/23 17:18 - MEDICATIONS Home Medications: Ambulatory Orders Medication Instructions Recorded Confirmed Apixaban [Eliquis] 5 mg PO BID 05/12/23 05/12/23 Atorvastatin [Lipitor] 20 mg PO HS #30 tab 05/12/23 Lisinopril [Zestril] 30 mg PO DAILY #90 tab 05/12/23 Metoprolol Tartrate [Lopressor] 25 mg PO BID 05/12/23 05/12/23 traMADol [Ultram] 50 mg PO DAILY PRN 05/12/23 05/12/23 - PHYSICAL EXAM AT DISCHARGE General Appearance: positive: No acute distress Eyes Bilateral: positive: No scleral icterus Neck: positive: Thyroid nml, No JVD, Trachea midline Respiratory: positive: Chest non-tender, No respiratory distress, Breath sounds nml Cardiovascular: positive: Other (+ S1, S2. No extra heart sounds.) Abdomen: positive: Non-tender, No organomegaly, No distention Skin: positive: No rash Extremities: positive: No pedal edema Neurologic/Psychiatric: positive: Oriented x3 - LABS Result Diagrams: 05/12/23 05:57 05/12/23 05:57 - QUALITY (Female Hip Fx Only) Was patient sent home on osteoporosis medication?: No - FOLLOW UP Follow Up: Follow-up with Danial Rg in 1-2 weeks. - TIME SPENT Time Spent in Discharge (Minutes): 28"
[2023-05-12 18:19] VITALS: BP 172/90
== END 2023-05-12 19:10 | disposition home or self-care (01) ==
LOC: ED 17:10 → MS2 23:48
PROVIDERS: ADMIT Student in an Organized Health Care Education/Training Program; ATTEND Internal Medicine
DX: J96.01 Acute respiratory failure with hypoxia (principal); I11.0 Hypertensive heart disease with heart failure; I50.33 Acute on chronic diastolic (congestive) heart failure; Z87.891 Personal history of nicotine dependence; G47.33 Obstructive sleep apnea (adult) (pediatric); I48.91 Unspecified atrial fibrillation; Z79.01 Long term (current) use of anticoagulants; I69.354 Hemiplegia and hemiparesis following cerebral infarction affecting left non-dominant side; T46.4X6A Underdosing of angiotensin-converting-enzyme inhibitors, initial encounter; Z91.128 Patient's intentional underdosing of medication regimen for other reason; E78.00 Pure hypercholesterolemia, unspecified
CPT/HCPCS: 36415; 71045; 80053; 80061; 83036; 83735; 83880; 84443; 84484; 85025; 85610; 85730; 87633; 93005; 93307; 94640; 96374; 96375; 96376; 99284; 99285; A9270; G0378; 83721

== ENCOUNTER 2023-06-29 10:22 | Outpatient (CLI) | payer MEDICARE, BC ==
[2023-06-29 10:45] LABS: HCT - HEMATOCRIT 41.5 % (37.0-47.0); HGB - HEMOGLOBIN 13.1 g/dL (12.0-16.0); MEAN CORPUSCULAR HEMOGLOBIN 29.2 pg (27.0-31.0); MEAN CORPUSCULAR HGB CONC 31.6 g/dL (32.0-36.0); MEAN CORPUSCULAR VOLUME 92.4 fL (81.0-99.0); MEAN PLATELET VOLUME 9.5 fL (7.9-10.8); RED BLOOD COUNT 4.49 10^6/uL (4.20-5.40); RED CELL DISTRIBUTION WIDTH 14.6 % (12.0-15.0); WHITE BLOOD COUNT 5.6 x10^3/uL (4.8-10.8)
[2023-06-29 10:59] LABS: ALBUMIN 4.6 g/dL (3.2-5.5); BILIRUBIN,DIRECT 0.1 mg/dL (0.03-0.18); BILIRUBIN,TOTAL 0.7 mg/dL (0.2-1.0); TOTAL PROTEIN 7.4 g/dL (6.4-8.9)
[2023-06-29 11:00] LABS: CALCIUM 10.9 mg/dL (8.5-10.3); CREATININE 0.8 mg/dL (0.6-1.3); POTASSIUM 3.9 mmol/L (3.5-4.5)
== END 2023-06-29 10:23 | disposition home or self-care (01) ==
LOC: LAB 10:22
PROVIDERS: ATTEND Family Medicine
DX: B35.1 Tinea unguium (principal); I11.0 Hypertensive heart disease with heart failure; I50.9 Heart failure, unspecified; Z79.01 Long term (current) use of anticoagulants; G47.33 Obstructive sleep apnea (adult) (pediatric); I48.91 Unspecified atrial fibrillation
CPT/HCPCS: 36415; 80048; 80076; 83880; 85027

== ENCOUNTER 2023-08-26 11:47 | Outpatient (CLI) | payer MEDICARE, BC ==
[2023-08-26 12:17] LABS: CALCIUM 10.9 mg/dL (8.5-10.3); CREATININE 1.1 mg/dL (0.6-1.3)
[2023-08-26 12:18] LABS: ALBUMIN 4.8 g/dL (3.2-5.5); BILIRUBIN,DIRECT 0.13 mg/dL (0.03-0.18); BILIRUBIN,TOTAL 0.6 mg/dL (0.2-1.0); TOTAL PROTEIN 8.2 g/dL (6.4-8.9)
== END 2023-08-26 11:48 | disposition home or self-care (01) ==
LOC: LAB 11:47
PROVIDERS: ATTEND Internal Medicine Cardiovascular Disease
DX: B35.1 Tinea unguium (principal); I10 Essential (primary) hypertension
CPT/HCPCS: 36415; 80048; 80076